=== PATIENT | female | born 1995 | race Caucasian/White ===

== ENCOUNTER 2025-05-16 08:09 | Outpatient (CLI) | payer BC ==
[2025-05-16 09:11] LABS: #Basophils 0.03 10x3/uL (0.0-0.2); #Eosinophils 0.04 10x3/uL (0.0-0.7); #Monocytes 0.38 10x3/uL (0.11-0.59); #Neutrophils 2.22 10x3/uL (1.40-6.50); %Basophils 0.6 % (0.0-1.0); %Eosinophils 0.8 % (0.0-10.0); %Lymphocytes 48.9 % (21.0-51.0); %Monocytes 7.3 % (0.0-10.0); %Neutrophils 42.4 % (42.0-75.0); Hematocrit 31.8 % (36.0-47.0); Hemoglobin 9.6 g/dL (12.0-16.0); Mean Corpuscular Hemoglobin 24.1 pg (27.0-31.0); Mean Corpuscular Volume 79.9 fL (78.0-98.0); Platelet Count 298 10x3/uL (130-400); Red Blood Cell (RBC) Count 3.98 mill/uL (4.20-5.40); White Blood Cell (WBC) Count 5.23 10x3/uL (4.8-10.8)
[2025-05-16 09:20] LABS: BHCG - Serum Negative (NEGATIVE); Pregs Control Background? CLEAR/WHITE (CLR/WHITE); Pregs Control Bar Appear? YES (CONTROL BAR)
== END 2025-05-16 08:10 | disposition home or self-care (01) ==
LOC: LABBT 08:09
PROVIDERS: ATTEND Orthopaedic Surgery
DX: Z01.812 Encounter for preprocedural laboratory examination (principal); M67.432 Ganglion, left wrist
CPT/HCPCS: 84703; 85025

== ENCOUNTER 2025-05-18 06:04 | Day surgery (SDC) | payer BC ==
[2025-05-16 08:21] VITALS: BMI 24.7
[2025-05-18] MEDS ORDERED: CEFAZOLIN 2 GM VIAL ONE (06:33)
[2025-05-18] MEDS ORDERED: PROPOFOL 200 MG/20 ML VIAL ONE (07:44)
[2025-05-18] MEDS ORDERED: Ondansetron PF 4 MG/2 ML Vial ONE (07:50)
[2025-05-18] MEDS ORDERED: HYDROcodone/Acetaminophen 5/325 mg Tablet ONE (09:53)
== END 2025-05-18 10:30 | disposition home or self-care (01) ==
LOC: SDC 06:04
PROVIDERS: ATTEND Orthopaedic Surgery
PROC: 0LB60ZZ Excision of Left Lower Arm and Wrist Tendon, Open Approach (ICD-10-PCS; principal; 2025-05-18)
DX: M67.432 Ganglion, left wrist (principal); Z91.018 Allergy to other foods
CPT/HCPCS: 88304; A6223; J0665; J1100; J2405; J2704; J3010